=== PATIENT | male | born 1995 | race Hispanic/Latino ===

== ENCOUNTER 2019-09-14 16:47 | Emergency (ER) | payer SELFPAY ==
--- NOTE | 2019-09-14 17:55 | ER ---
Nurse's Notes [facility] Name: Jose Lambert Age: 24 yrs Sex: Male : 1995 Arrival Date: 09/14/2019 Time: 16:48 Bed 15 Private MD: Diagnosis: Cutaneous abscess of groin Presentation: 09/13 16:56 Chief complaint: Patient states: Abscess to left groin area for 1 day getting ll1 progressively worse. States its draining, no fever. Coronavirus screen: Client denies travel out of the [place] in the last 14 days. At this time, the client does not indicate any symptoms associated with coronavirus-19. Ebola Screen: Patient denies travel to an Ebola-affected area in the 21 days before illness onset. Initial Sepsis Screen: Does the patient meet any 2 criteria? No. Patient's initial sepsis screen is negative. Risk Assessment: Do you want to hurt yourself or someone else? Patient reports no desire to harm self or others. Onset of symptoms was September 14, 2019. 16:56 Method Of Arrival: Ambulatory ll1 16:56 Acuity: FREDY 4 ll1 Historical: - Allergies: 16:58 Codeine; ll1 - PSHx: 16:58 None; ll1 - Immunization history:: Flu vaccine status is unknown. - Social history:: Smoking status: Patient reports the use of cigarette tobacco products, denies chronic smoking, but will smoke occasionally, Patient uses alcohol, occasionally. only on a social basis. Patient/guardian denies using street drugs. Screenin:16 Abuse screen: Denies threats or abuse. Nutritional screening: No deficits noted. tw2 Tuberculosis screening: No symptoms or risk factors identified. Fall Risk None identified. Assessment: 17:25 General: Appears in no apparent distress. Behavior is calm, cooperative, appropriate tw2 for age. Pain: Denies pain. Neuro: Level of Consciousness is awake, alert, obeys commands, Oriented to person, place, time, situation. Cardiovascular: Patient's skin is warm and dry. Respiratory: Airway is patent Respiratory effort is even, unlabored, Respiratory pattern is regular, symmetrical. GI: No signs and/or symptoms were reported involving the gastrointestinal system. : No signs and/or symptoms were reported regarding the genitourinary system. EENT: No signs and/or symptoms were reported regarding the EENT system. Derm: Reports "a sore on my penis, like an abscess". Musculoskeletal: Range of motion: intact in all extremities. 18:25 Reassessment: Patient appears in no apparent distress at this time. No changes from tw2 previously documented assessment. Patient and/or family updated on plan of care and expected duration. Pain level reassessed. Patient is alert, oriented x 3, equal unlabored respirations, skin warm/dry/pink. Vital Signs: 16:56 BP 130 / 89; Pulse 87; Resp 17; Temp 98.5; Pulse Ox 99% ; Weight 95.25 kg; Height 5 ft. ll1 10 in. (177.80 cm); Pain 5/10; 18:26 BP 129 / 81; Pulse 84; Resp 17; Pulse Ox 99% on R/A; tw2 16:56 Body Mass Index 30.13 (95.25 kg, 177.80 cm) ll1 ED Course: 16:48 Patient arrived in ED. fj1 16:53 Vivien Smith FNP-C is [facility]. kb 16:53 Alfred Segal MD is Attending Physician. kb 16:57 Triage completed. ll1 16:58 Arm band placed on Patient notified of wait time. ll1 17:25 Areli Lin RN is Primary Nurse. tw2 17:25 Placed in gown. Bed in low position. Call light in reach. Pulse ox on. NIBP on. Warm tw2 blanket given. 18:26 No provider procedures requiring assistance completed. Patient did not have IV access tw2 during this emergency room visit. Administered Medications: 18:11 Drug: Bactrim (160 mg-800 mg (DS) 1 tablet Route: PO; tw2 18:25 Follow up: Response: No adverse reaction tw2 Outcome: 17:54 Discharge ordered by . kb 18:26 Discharged to home ambulatory. tw2 18:26 Condition: stable 18:26 Discharge instructions given to patient, Instructed on discharge instructions, follow up and referral plans. medication usage, Demonstrated understanding of instructions, follow-up care, medications, Prescriptions given X 1. 18:27 Patient left the ED. tw2 Signatures: Vivien Smith FNP-C FNP-Areli Jimenez RN RN tw2 Vasu Carlisel fj1 Hero, Lynsay, RN RN ll1
--- NOTE | 2019-09-14 17:55 | EDPHYS ---
Physician Documentation [facility] Name: Jose Lambert Age: 24 yrs Sex: Male : 1995 Arrival Date: 09/14/2019 Time: 16:48 Bed 15 Private MD: ED Physician Alfred Segal HPI: 09/13 17:48 This 24 yrs old Male presents to ER via Ambulatory with complaints of Abscess. kb 17:48 The patient presents with an abscess of the shaft of penis. Description: draining, kb erythematous. Onset: The symptoms/episode began/occurred yesterday. Possible cause(s): unknown. Associated signs and symptoms: Pertinent positives: drainage, erythema. Modifying factors: the symptoms are alleviated by nothing, the symptoms are aggravated by nothing. Severity of symptoms: At their worst the symptoms were mild, in the emergency department the symptoms are unchanged. The patient has not experienced similar symptoms in the past. The patient has not recently seen a physician. Pt states he thinks he got bit by something on the base of his penis. States he noticed what looked like a bite and was able to get some purulent discharge from it when he squeezed it. States it has grown in size since yesterday. Historical: - Allergies: 16:58 Codeine; ll1 - PSHx: 16:58 None; ll1 - Immunization history:: Flu vaccine status is unknown. - Social history:: Smoking status: Patient reports the use of cigarette tobacco products, denies chronic smoking, but will smoke occasionally, Patient uses alcohol, occasionally. only on a social basis. Patient/guardian denies using street drugs. ROS: 17:45 Constitutional: Negative for fever, chills, and weight loss, Cardiovascular: Negative kb for chest pain, palpitations, and edema, Respiratory: Negative for shortness of breath, cough, wheezing, and pleuritic chest pain, Abdomen/GI: Negative for abdominal pain, nausea, vomiting, diarrhea, and constipation, Back: Negative for injury and pain, MS/Extremity: Negative for injury and deformity, Neuro: Negative for headache, weakness, numbness, tingling, and seizure. 17:45 Skin: Positive for abscess, of the shaft of penis. Exam: 17:45 Constitutional: This is a well developed, well nourished patient who is awake, alert, kb and in no acute distress. Head/Face: Normocephalic, atraumatic. Chest/axilla: Normal chest wall appearance and motion. Nontender with no deformity. No lesions are appreciated. Cardiovascular: Regular rate and rhythm with a normal S1 and S2. No gallops, murmurs, or rubs. Normal PMI, no JVD. No pulse deficits. Respiratory: Lungs have equal breath sounds bilaterally, clear to auscultation and percussion. No rales, rhonchi or wheezes noted. No increased work of breathing, no retractions or nasal flaring. Abdomen/GI: Soft, non-tender, with normal bowel sounds. No distension or tympany. No guarding or rebound. No evidence of tenderness throughout. MS/ Extremity: Pulses equal, no cyanosis. Neurovascular intact. Full, normal range of motion. Neuro: Awake and alert, GCS 15, oriented to person, place, time, and situation. Cranial nerves II-XII grossly intact. Motor strength 5/5 in all extremities. Sensory grossly intact. Cerebellar exam normal. Normal gait. 17:45 Skin: abscess, that is small, of the shaft of penis, with drainage, that is purulent. Vital Signs: 16:56 BP 130 / 89; Pulse 87; Resp 17; Temp 98.5; Pulse Ox 99% ; Weight 95.25 kg; Height 5 ft. ll1 10 in. (177.80 cm); Pain 5/10; 18:26 BP 129 / 81; Pulse 84; Resp 17; Pulse Ox 99% on R/A; tw2 16:56 Body Mass Index 30.13 (95.25 kg, 177.80 cm) ll1 MDM: 17:26 Patient medically screened. kb 17:48 Data reviewed: vital signs, nurses notes. Data interpreted: Pulse oximetry: on room air kb is 99 %. Interpretation: normal. Counseling: I had a detailed discussion with the patient and/or guardian regarding: the historical points, exam findings, and any diagnostic results supporting the discharge/admit diagnosis, the need for outpatient follow up, a family practitioner, to return to the emergency department if symptoms worsen or persist or if there are any questions or concerns that arise at home. Administered Medications: 18:11 Drug: Bactrim (160 mg-800 mg (DS) 1 tablet Route: PO; tw2 18:25 Follow up: Response: No adverse reaction tw2 Disposition: 09/14 07:57 Co-signature as Attending Physician, Alfred Segal MD I agree with the assessment and kdr plan of care. Disposition: 09/14/19 17:54 Discharged to Home. Impression: Cutaneous abscess of groin. - Condition is Stable. - Discharge Instructions: Skin Abscess, [id number]. - Prescriptions for Bactrim DS 800- 160 mg Oral Tablet - take 1 tablet by ORAL route every 12 hours for 10 days; 20 tablet. - Medication Reconciliation Form, Thank You Letter, Antibiotic Education, Prescription Opioid Use form. - Follow up: Emergency Department; When: As needed; Reason: Worsening of condition. Follow up: Private Physician; When: 2 - 3 days; Reason: Recheck today's complaints, Continuance of care, Re-evaluation by your physician. Signatures: Vivien Smith, AIRPLANE ENGINEER-C AIRPLANE ENGINEER-Alfred Casey MD MD kdr Areli Lin RN RN tw2 Bill Monahan RN RN ll1 Corrections: (The following items were deleted from the chart) 09/13 18:27 17:54 09/14/2019 17:54 Discharged to Home. Impression: Cutaneous abscess of groin. tw2 Condition is Stable. Forms are Medication Reconciliation Form, Thank You Letter, Antibiotic Education, Prescription Opioid Use. Follow up: Emergency Department; When: As needed; Reason: Worsening of condition. Follow up: Private Physician; When: 2 - 3 days; Reason: Recheck today's complaints, Continuance of care, Re-evaluation by your physician. kb
[2019-09-14] MEDS ORDERED: SMZ./TMP. 800/160 MG TABLET ONE (18:15)
[2019-09-14 18:38] VITALS: TEMP 98.5; O2SAT 99
[2019-09-14 18:40] VITALS: BP 129/81
== END 2019-09-14 18:27 | disposition home or self-care (01) ==
LOC: ER 16:47
DX: N48.21 Abscess of corpus cavernosum and penis (principal); F17.210 Nicotine dependence, cigarettes, uncomplicated; Z88.5 Allergy status to narcotic agent
CPT/HCPCS: 99283

== ENCOUNTER 2019-09-30 09:38 | Emergency (ER) | payer BC, SELFPAY ==
[2019-09-30] MEDS ORDERED: DIPHENHYDRAMINE 50 MG/ML VIAL ONE (11:00)
[2019-09-30] MEDS ORDERED: dexAMETHasone 10 MG/ML VIAL ONE (11:01)
[2019-09-30] MEDS ORDERED: FAMOTIDINE 20 MG/2 ML VIAL IV ONE (11:01)
--- NOTE | 2019-09-30 11:39 | ER ---
Nurse's Notes [facility] Name: Jose Lambert Age: 24 yrs Sex: Male : 1995 Arrival Date: 09/30/2019 Time: 09:40 Bed 16 Private MD: Diagnosis: Irritant contact dermatitis Presentation: 09/29 10:16 Chief complaint: Patient states: Swelling and pain on upper and lower lips since ca1 yesterday, probably from contact with insulation materials. Denies throat swelling, difficulty breathing and difficulty swallowing. Coronavirus screen: Client denies travel out of the [place] in the last 14 days. At this time, the client does not indicate any symptoms associated with coronavirus-19. Ebola Screen: Patient negative for fever greater than or equal to 101.5 degrees Fahrenheit, and additional compatible Ebola Virus Disease symptoms Patient denies exposure to infectious person. Patient denies travel to an Ebola-affected area in the 21 days before illness onset. No symptoms or risks identified at this time. Initial Sepsis Screen: Does the patient meet any 2 criteria? No. Patient's initial sepsis screen is negative. Does the patient have a suspected source of infection? No. Patient's initial sepsis screen is negative. Risk Assessment: Do you want to hurt yourself or someone else? Patient reports no desire to harm self or others. Onset of symptoms was September 30, 2019. 10:16 Method Of Arrival: Ambulatory ca1 10:16 Acuity: FREDY 5 ca1 Triage Assessment: 10:19 General: Appears in no apparent distress. comfortable, Behavior is calm, cooperative, ca1 appropriate for age. Pain: Complains of pain in upper vermilion border, upper lip, left corner of mouth, right corner of mouth, lower lip and lower vermilion border Pain currently is 5 out of 10 on a pain scale. Pain began 1 day ago. EENT: lips swollen. Throat is clear. Neuro: Level of Consciousness is awake, alert, obeys commands, Oriented to person, place, time, situation. Cardiovascular: Heart tones S1 S2 present Capillary refill < 3 seconds Patient's skin is warm and dry. Respiratory: Airway is patent Respiratory effort is even, unlabored, Respiratory pattern is regular, symmetrical, Breath sounds are clear bilaterally. GI: Abdomen is flat, non-distended, Bowel sounds present X 4 quads. Abd is soft and non tender X 4 quads. : No signs and/or symptoms were reported regarding the genitourinary system. Derm: Skin is intact, is healthy with good turgor, Skin is pink, warm \T\ dry. Musculoskeletal: Circulation, motion, and sensation intact. Capillary refill < 3 seconds. Historical: - Allergies: 10:19 Codeine; ca1 10:19 Ibuprofen; ca1 - Home Meds: 10:19 None [Active]; ca1 - PMHx: 10:19 None; ca1 - PSHx: 10:19 None; ca1 - Immunization history:: Adult Immunizations up to date. - Social history:: Smoking status: Patient reports the use of cigarette tobacco products, denies chronic smoking, but will smoke occasionally. Screenin:21 Abuse screen: Denies threats or abuse. Denies injuries from another. Nutritional ca1 screening: No deficits noted. Tuberculosis screening: No symptoms or risk factors identified. Fall Risk None identified. Assessment: 10:21 Reassessment: see triage assessment. ca1 11:30 Reassessment: Patient appears in no apparent distress at this time. Patient and/or ca1 family updated on plan of care and expected duration. Pain level reassessed. Patient is alert, oriented x 3, equal unlabored respirations, skin warm/dry/pink. Vital Signs: 10:16 BP 127 / 76; Pulse 83; Resp 16 S; Temp 98.5(O); Pulse Ox 98% on R/A; Weight 99.79 kg ca1 (R); Height 5 ft. 10 in. (177.80 cm) (R); Pain 5/10; 11:30 BP 111 / 88; Pulse 59; Resp 15 S; Pulse Ox 100% on R/A; ca1 10:16 Body Mass Index 31.57 (99.79 kg, 177.80 cm) ca1 ED Course: 09:40 Patient arrived in ED. ag5 10:10 Alejandro Salgado NP is PHCP. pm1 10:10 Vinay Hubbard MD is Attending Physician. pm1 10:11 Sarah Contreras, LAYO is Primary Nurse. ca1 10:19 Triage completed. ca1 10:19 Arm band placed on right wrist. ca1 10:21 Patient has correct armband on for positive identification. Bed in low position. Call ca1 light in reach. Side rails up X 1. Pulse ox on. NIBP on. 10:43 No provider procedures requiring assistance completed. Inserted saline lock: 20 gauge ca1 in left antecubital area, using aseptic technique. 12:11 IV discontinued, intact, bleeding controlled, No redness/swelling at site. Pressure ca1 dressing applied. Administered Medications: 10:45 Drug: Pepcid 20 mg Route: IVP; Site: left antecubital; ca1 12:10 Follow up: Response: No adverse reaction ca1 10:47 Drug: Decadron - Dexamethasone 10 mg Route: IVP; Site: left antecubital; ca1 12:10 Follow up: Response: No adverse reaction; Marked relief of symptoms ca1 10:50 Drug: Benadryl 25 mg Route: IVP; Site: left antecubital; ca1 12:10 Follow up: Response: No adverse reaction; Marked relief of symptoms ca1 Outcome: 11:39 Discharge ordered by MD. pm1 12:11 Discharged to home ambulatory. ca1 12:11 Condition: stable 12:11 Discharge instructions given to patient, Instructed on discharge instructions, follow up and referral plans. no drinking with medication, no driving heavy equipment, medication usage, Demonstrated understanding of instructions, follow-up care, medications, Prescriptions given X 3. 12:11 Patient left the ED. ca1 Signatures: Alejandro Salgado NP EGG CASER pm1 Sarah Contreras RN RN ca1 Shara Roman ag5
--- NOTE | 2019-09-30 11:39 | EDPHYS ---
Physician Documentation [facility] Name: Jose Lambert Age: 24 yrs Sex: Male : 1995 Arrival Date: 09/30/2019 Time: 09:40 Bed 16 Private MD: ED Physician Vinay Hubbard HPI: 09/29 10:32 This 24 yrs old Male presents to ER via Ambulatory with complaints of Lips pm1 Swelling, Lip Pain. 10:32 The patient presents with swelling, itching. The problem is located in the upper lip pm1 and lower lip. Onset: The symptoms/episode began/occurred 3 day(s) ago. Duration: The symptoms are continuous. Modifying factors: The symptoms are alleviated by nothing, the symptoms are aggravated by nothing. Associated signs and symptoms: Pertinent negatives: dysphagia, fever, inability to eat, sore throat, shortness of breath, chest pain. The patient has not experienced similar symptoms in the past. The patient has been recently seen at the [facility] Emergency Department, for unrelated complaints, 09/14/2019 for cutaneous abscess on groin and prescribed bactrim. Patient uncertain of the cause for swelling of lips that started 3 days. Patient believes it is possible due to exposure to insulation. he got on his arms and hands and believes that he might of touched his face and mouth. Patient seen for cutaneous abscess of groin and prescribed bactrim which he completed. Historical: - Allergies: 10:19 Codeine; ca1 10:19 Ibuprofen; ca1 - Home Meds: 10:19 None [Active]; ca1 - PMHx: 10:19 None; ca1 - PSHx: 10:19 None; ca1 - Immunization history:: Adult Immunizations up to date. - Social history:: Smoking status: Patient reports the use of cigarette tobacco products, denies chronic smoking, but will smoke occasionally. ROS: 10:32 Constitutional: Negative for fever, chills, and weight loss, Eyes: Negative for injury, pm1 pain, redness, and discharge. 10:32 Neck: Negative for injury, pain, and swelling, Cardiovascular: Negative for chest pain, palpitations, and edema, Respiratory: Negative for shortness of breath, cough, wheezing, and pleuritic chest pain, Back: Negative for injury and pain, MS/Extremity: Negative for injury and deformity, Skin: Negative for injury, rash, and discoloration, Neuro: Negative for headache, weakness, numbness, tingling, and seizure. 10:32 ENT: Positive for lip swelling, Negative for ear pain, sore throat, dental pain, difficulty swallowing, difficulty handling secretions, hoarseness. Exam: 10:32 Constitutional: This is a well developed, well nourished patient who is awake, alert, pm1 and in no acute distress. Head/Face: Normocephalic, atraumatic. 10:32 Skin: Warm, dry with normal turgor. Normal color with no rashes, no lesions, and no evidence of cellulitis. MS/ Extremity: Pulses equal, no cyanosis. Neurovascular intact. Full, normal range of motion. 10:32 ENT: External ear(s): are unremarkable, Ear canal(s): are normal, Mouth: Lips: mile swelling present to upper and lower lips, Posterior pharynx: is normal, airway is patent, no erythema, no exudate, no peritonsilar mass, no pooling of secretions, no swelling, peritonsillar mass, is not appreciated, pooling of secretions, is not appreciated. 10:32 Cardiovascular: Exam negative for acute changes, Rate: normal, Rhythm: regular, Pulses: no pulse deficits are appreciated. 10:32 Respiratory: Exam negative for acute changes, respiratory distress, shortness of breath. 10:32 Abdomen/GI: Exam negative for acute changes, Inspection: abdomen appears normal, Palpation: abdomen is soft and non-tender, in all quadrants. 10:32 Neuro: Exam negative for acute changes, Orientation: is normal, Mentation: is normal, Motor: is normal, moves all fours, Gait: is steady, at a normal pace, without difficulty. Vital Signs: 10:16 BP 127 / 76; Pulse 83; Resp 16 S; Temp 98.5(O); Pulse Ox 98% on R/A; Weight 99.79 kg ca1 (R); Height 5 ft. 10 in. (177.80 cm) (R); Pain 5/10; 11:30 BP 111 / 88; Pulse 59; Resp 15 S; Pulse Ox 100% on R/A; ca1 10:16 Body Mass Index 31.57 (99.79 kg, 177.80 cm) ca1 MDM: 10:10 Patient medically screened. pm1 10:32 Differential diagnosis: urticaria, allergic reaction, roxi chana's, cellulitis, pm1 abscess. 11:38 Data reviewed: vital signs. Data interpreted: Pulse oximetry: on room air is 98 %. pm1 Interpretation: normal. Counseling: I had a detailed discussion with the patient and/or guardian regarding: the historical points, exam findings, and any diagnostic results supporting the discharge/admit diagnosis, the need for outpatient follow up, for definitive care, an allergy/procurement specialist, a family practitioner, to return to the emergency department if symptoms worsen or persist or if there are any questions or concerns that arise at home. 11:38 ED course: patient reports getting rash to groin area at the same time due to lack of pm1 protective gear with installing insulation. Likely got insulation around his face and mouth area causing the irritant contact dermatitis. 09/29 10:24 Order name: IV Saline Lock; Complete Time: 10:43 pm1 Administered Medications: 10:45 Drug: Pepcid 20 mg Route: IVP; Site: left antecubital; ca1 12:10 Follow up: Response: No adverse reaction ca1 10:47 Drug: Decadron - Dexamethasone 10 mg Route: IVP; Site: left antecubital; ca1 12:10 Follow up: Response: No adverse reaction; Marked relief of symptoms ca1 10:50 Drug: Benadryl 25 mg Route: IVP; Site: left antecubital; ca1 12:10 Follow up: Response: No adverse reaction; Marked relief of symptoms ca1 Disposition: 09/30 09:07 Co-signature as Attending Physician, Vinay Hubbard MD I agree with the assessment and clyde plan of care. Disposition: 09/30/19 11:39 Discharged to Home. Impression: Irritant contact dermatitis. - Condition is Stable. - Discharge Instructions: Contact Dermatitis. - Prescriptions for Benadryl 25 mg Oral Capsule - take 1 capsule by ORAL route every 6 hours As needed; 30 tablet. Pepcid 20 mg Oral Tablet - take 1 tablet by ORAL route every 12 hours for 10 days; 20 tablet. Prednisone 20 mg Oral Tablet - take 3 tablet by ORAL route once daily for 5 days; 15 tablet. - Work release form, Medication Reconciliation Form, Thank You Letter, Antibiotic Education, Prescription Opioid Use form. - Follow up: Emergency Department; When: As needed; Reason: Worsening of condition. Follow up: Private Physician; When: 2 - 3 days; Reason: Recheck today's complaints, Continuance of care, Re-evaluation by your physician. - Problem is new. - Symptoms have improved. Signatures: Vinay Hubbard MD MD cha Marinas, Patrick, BLOW TORCH BURNER BLOW TORCH BURNER pm1 Sarah Contreras RN RN ca1 Corrections: (The following items were deleted from the chart) 09/29 11:44 11:39 09/30/2019 11:39 Discharged to Home. Impression: Angioneurotic edema. Condition pm1 is Stable. Discharge Instructions: Angioedema. Prescriptions for Benadryl 25 mg Oral Capsule - take 1 capsule by ORAL route every 6 hours As needed; 30 tablet, Pepcid 20 mg Oral Tablet - take 1 tablet by ORAL route every 12 hours for 10 days; 20 tablet, Prednisone 20 mg Oral Tablet - take 3 tablet by ORAL route once daily for 5 days; 15 tablet. and Forms are Medication Reconciliation Form, Thank You Letter, Antibiotic Education, Prescription Opioid Use. Follow up: Emergency Department; When: As needed; Reason: Worsening of condition. Follow up: Private Physician; When: 2 - 3 days; Reason: Recheck today's complaints, Continuance of care, Re-evaluation by your physician. Problem is new. Symptoms have improved. pm1 12:11 11:44 09/30/2019 11:39 Discharged to Home. Impression: Irritant contact dermatitis. ca1 Condition is Stable. Discharge Instructions: Angioedema. Prescriptions for Benadryl 25 mg Oral Capsule - take 1 capsule by ORAL route every 6 hours As needed; 30 tablet, Pepcid 20 mg Oral Tablet - take 1 tablet by ORAL route every 12 hours for 10 days; 20 tablet, Prednisone 20 mg Oral Tablet - take 3 tablet by ORAL route once daily for 5 days; 15 tablet. and Forms are Medication Reconciliation Form, Thank You Letter, Antibiotic Education, Prescription Opioid Use. Follow up: Emergency Department; When: As needed; Reason: Worsening of condition. Follow up: Private Physician; When: 2 - 3 days; Reason: Recheck today's complaints, Continuance of care, Re-evaluation by your physician. Problem is new. Symptoms have improved. pm1
== END 2019-09-30 12:11 | disposition home or self-care (01) ==
LOC: ER 09:38
DX: L24.9 Irritant contact dermatitis, unspecified cause (principal); Z88.6 Allergy status to analgesic agent; F17.210 Nicotine dependence, cigarettes, uncomplicated
CPT/HCPCS: 96375; 96374; 99284; J1200; J1100

== ENCOUNTER 2019-10-02 12:14 | Emergency (ER) | payer BC ==
--- NOTE | 2019-10-02 12:55 | EDPHYS ---
Physician Documentation [facility] Name: Jose Lambert Age: 24 yrs Sex: Male : 1995 Arrival Date: 10/02/2019 Time: 12:18 Bed 6 Private MD: ED Physician Alfred Segal HPI: 10/01 12:52 This 24 yrs old Male presents to ER via Ambulatory with complaints of Rash. cp 12:52 The patient's rash thought to be caused by an unknown cause. The rash is located on the cp mouth and penis. The rash can be described as burning, ulcerated. Onset: The symptoms/episode began/occurred 1 week(s) ago. Associated signs and symptoms: Pertinent positives: burning sensation, swelling of lips, Pertinent negatives: fever. Severity of symptoms: in the emergency department the symptoms are worse. 12:52 The patient has been recently seen at the [facility] Emergency cp Department, last week, for similar complaints. Historical: - Allergies: 12:26 Codeine; ll1 12:26 Ibuprofen; ll1 - PSHx: 12:26 None; ll1 - Immunization history:: Flu vaccine status is unknown. - Social history:: Smoking status: Patient reports the use of cigarette tobacco products, cigars, Patient/guardian denies using street drugs. ROS: 12:54 Constitutional: Negative for fever. cp 12:54 Skin: Positive for rash, of the mouth and penis. 12:54 : Negative for urinary symptoms, penile discharge. cp 12:54 All other systems are negative. cp Exam: 12:54 Constitutional: The patient appears in no acute distress, alert, awake, non-toxic, well cp developed, well nourished. 12:54 ENT: External ear(s): are unremarkable, Nose: is normal, Mouth: Lips: noted ulcerated lesions lower and upper lips, Posterior pharynx: Airway: no evidence of obstruction, patent. 12:54 Cardiovascular: Rate: normal. 12:54 Abdomen/GI: Inspection: abdomen appears normal. 12:54 : Male external genitalia: Patient is not circumisioned. lesion, of the head of penis, erythematous, swollen, ulcerations, Sexual behavior: the patient is sexually active. Vital Signs: 12:25 BP 137 / 85; Pulse 75; Resp 17; Temp 99.1; Pulse Ox 100% ; Pain 5/10; ll1 MDM: 12:41 Patient medically screened. cp 12:54 Differential diagnosis: allergic reaction, genital herpes, candidiasis. cp 12:54 Data reviewed: vital signs, nurses notes, old medical records, note from previous visit cp and as a result, I will discharge patient. Counseling: I had a detailed discussion with the patient and/or guardian regarding: the historical points, exam findings, and any diagnostic results supporting the discharge/admit diagnosis, to return to the emergency department if symptoms worsen or persist or if there are any questions or concerns that arise at home. Administered Medications: No medications were administered Disposition: 13:00 Chart complete. cp 13:54 Co-signature as Attending Physician, Alfred Segal MD I agree with the assessment and kdr plan of care. Disposition: 10/02/19 12:55 Discharged to Home. 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 - Condition is Stable. - Discharge Instructions: Genital Herpes, Sexually Transmitted Disease. - Prescriptions for nystatin 100,000 unit/gram Topical ointment - apply 1 application by TOPICAL route 3 times per day for 8-10 days apply to penis as directed; 30 gram. Acyclovir 200 mg Oral Capsule - take 1 capsule by ORAL route 5 times per day; 50 capsule. - Medication Reconciliation Form, Thank You Letter, Antibiotic Education, Prescription Opioid Use form. - Follow up: Private Physician; When: 2 - 3 days; Reason: Recheck today's complaints. - Problem is new. - Symptoms are unchanged. Signatures: Alfred Segal MD MD [facility] Sirena Barnett RN RN ph Vinay Britton PA PA Bill Monahan RN RN ll1 Corrections: (The following items were deleted from the chart) 13:16 12:55 10/02/2019 12:55 Discharged to Home. Impression: Herpesviral infection of other ph male genital organs. Condition is Stable. Forms are Medication Reconciliation Form, Thank You Letter, Antibiotic Education, Prescription Opioid Use. Follow up: Private Physician; When: 2 - 3 days; Reason: Recheck today's complaints. Problem is new. Symptoms are unchanged. cp
--- NOTE | 2019-10-02 12:55 | ER ---
Nurse's Notes [facility] Name: Jose Lambert Age: 24 yrs Sex: Male : 1995 Arrival Date: 10/02/2019 Time: 12:18 Bed 6 Private MD: Diagnosis: Herpesviral infection of other male genital organs Presentation: 10/01 12:25 Chief complaint: Patient states: Rash to left groin has gotten worse since visit here ll1 last week. States he stopped putting the cream on it 3 days ago when it got worse. No fever at home. Coronavirus screen: Client denies travel out of the [place] in the last 14 days. At this time, the client does not indicate any symptoms associated with coronavirus-19. Ebola Screen: Patient denies travel to an Ebola-affected area in the 21 days before illness onset. Initial Sepsis Screen: Does the patient meet any 2 criteria? No. Patient's initial sepsis screen is negative. Risk Assessment: Do you want to hurt yourself or someone else? Patient reports no desire to harm self or others. Onset of symptoms is unknown. 12:25 Method Of Arrival: Ambulatory ll1 12:25 Acuity: FREDY 3 ll1 13:16 Initial Sepsis Screen: Does the patient have a suspected source of infection? No. ph Patient's initial sepsis screen is negative. Historical: - Allergies: 12:26 Codeine; ll1 12:26 Ibuprofen; ll1 - PSHx: 12:26 None; ll1 - Immunization history:: Flu vaccine status is unknown. - Social history:: Smoking status: Patient reports the use of cigarette tobacco products, cigars, Patient/guardian denies using street drugs. Screenin:13 Abuse screen: Denies threats or abuse. Denies injuries from another. Nutritional ph screening: No deficits noted. Tuberculosis screening: No symptoms or risk factors identified. Fall Risk None identified. Assessment: 13:14 General: Appears in no apparent distress. comfortable, well groomed, Behavior is calm, ph cooperative, appropriate for age, Denies fever. Pain: Complains of pain in pelvis and nose Quality of pain is described as burning. Neuro: Level of Consciousness is awake, alert, obeys commands, Oriented to person, place, time, situation. Respiratory: Airway is patent Respiratory effort is even, unlabored. Derm: Skin is healthy with good turgor, Skin is pink, warm \T\ dry. Rash noted that is draining clear fluid, red, vesicular, on groin, nose and mouth. Musculoskeletal: Circulation, motion, and sensation intact. Range of motion: intact in all extremities. Vital Signs: 12:25 BP 137 / 85; Pulse 75; Resp 17; Temp 99.1; Pulse Ox 100% ; Pain 5/10; ll1 ED Course: 12:18 Patient arrived in ED. mr 12:26 Triage completed. ll1 12:27 Arm band placed on Patient placed in an exam room, on a stretcher. ll1 12:32 Sirena Barnett, RN is Primary Nurse. ph 12:38 Vinay Britton PA is PHCP. cp 12:39 Alfred Segal MD is Attending Physician. cp 13:13 Patient has correct armband on for positive identification. Bed in low position. Call ph light in reach. Side rails up X 1. Pulse ox on. NIBP on. Door closed. Noise minimized. Warm blanket given. 13:16 No provider procedures requiring assistance completed. Patient did not have IV access ph during this emergency room visit. Administered Medications: No medications were administered Outcome: 12:55 Discharge ordered by MD. cp 13:16 Discharged to home ambulatory. ph 13:16 Condition: good 13:16 Discharge instructions given to patient, Instructed on discharge instructions, follow up and referral plans. medication usage, Demonstrated understanding of instructions, follow-up care, medications, Prescriptions given X 2. 13:16 Patient left the ED. ph Signatures: Christine Chavez mr Sirena Barnett RN RN Vinay Britton PA PA cp Lewis, Lynsay, RN RN ll1
[2019-10-06 23:42] VITALS: BP 137/85; TEMP 99.1; O2SAT 100
== END 2019-10-02 13:16 | disposition home or self-care (01) ==
LOC: ER 12:14
DX: A60.02 Herpesviral infection of other male genital organs (principal); Z72.0 Tobacco use; Z88.5 Allergy status to narcotic agent; Z88.6 Allergy status to analgesic agent
CPT/HCPCS: 99283